=== PATIENT | male | born 1955 | race Two or more races ===

== ENCOUNTER 2021-03-20 07:17 | Outpatient (CLI) | payer OTHER | END 2021-03-20 07:18 | disposition home or self-care (01) | LOC: NUCLEAR 07:17 | PROVIDERS: ATTEND Internal Medicine Cardiovascular Disease | DX: R07.89 Other chest pain (principal); I50.1 Left ventricular failure, unspecified; I20.1 Angina pectoris with documented spasm | CPT/HCPCS: 78452; 93017; A9500 ==